=== PATIENT | female | born 1970 | race Asian ===

== ENCOUNTER 2017-09-07 10:54 | Day surgery (SDC) | payer OTHER, SELFPAY ==
[2017-09-07] MEDS ORDERED: ALPRAZOLAM0.5 MG PO (11:19)
[2017-09-07] MEDS ORDERED: FISH OIL 1,0001 EAC3 PO (11:19)
[2017-09-07] MEDS ORDERED: LISINOPRIL10 MG PO (11:20)
[2017-09-07] MEDS ORDERED: LEVOTHYROXINE112 MCG PO (11:20)
[2017-09-07] MEDS ORDERED: OLANZAPINE15 MG PO (11:21)
[2017-09-07] MEDS ORDERED: MULTIVITAMINS1 EAC8 PO (11:21)
[2017-09-07] MEDS ORDERED: VITAMIN D2000 UNI1 PO (11:22)
--- NOTE | 2017-09-07 13:29 | NUR ---
09/07/17 1329 Monica Pantoja report from jaya ayala.
--- NOTE | 2017-09-08 10:00 | OR ---
[facility] [address], [place] [address] Signed DATE OF OPERATION: 09/07/2017 SURGEON: Jana Victoria MD PREOPERATIVE DIAGNOSIS: Colon evaluation for episodic rectal bleeding. POSTOPERATIVE DIAGNOSIS: Sessile polyp at rectosigmoid (excised). PROCEDURE: Total colonoscopy to cecum with cold snare polypectomy x1. SURGEON: Jana Victoria MD ANESTHESIA: Intravenous sedation with fentanyl 100 mcg, Versed 9 mg. INDICATION: This 47-year-old white [place] Indian woman, has some underlying psychiatric issues, but is high functioning and working and independent. She is the patient of Constance Burks PA-C and known to me from the past having undergone colonoscopy in 2003, where she was found to have hyperplastic polyps of the right colon. She has had episodic rectal bleeding in recent times and on that basis she is recommended for colonoscopy. The risks of bleeding, infection, perforation, and so forth related to colonoscopy were reviewed with her. She understands and wished to proceed. FINDINGS: The prep was adequate. Complete colonoscopy was undertaken to the cecum. The only finding of note was a sessile polyp at approximately the rectosigmoid, which was excised with snare polypectomy technique (cold technique). There was no untoward bleeding. DESCRIPTION OF PROCEDURE: The patient was brought to the endoscopy suite and placed in lateral decubitus position given intravenous sedation to the point of slurred speech and nystagmus. Full cardiopulmonary monitoring was maintained. Digital rectal examination was normal. Electronically Signed By: JANA VICTORIA MD 09/08/17 1000 PATIENT NAME: REID WATERS OPERATIVE REPORT DATE OF : 70 PHYSICIAN: JANA VICTORIA MD REPORT #: [id number] REPORT IS CONFIDENTIAL AND NOT TO BE RELEASED WITHOUT AUTHORIZATION [facility] [address], [place] [address] Signed An Olympus video colonoscope was passed in the rectum and manipulated throughout the colon, ultimately intubating the cecum itself. Irrigation was undertaken as needed. The ileocecal valve and appendiceal orifice were normal. Scope was withdrawn from that point, examination throughout showed no sign of abnormality until approximately the rectosigmoid at about 12-15 cm where a small sessile polyp was noted. It was adenomatous based on narrow band imaging. Using a cold snare polypectomy technique, the polyp was excised fully. It was passed for permanent pathology. Retroflexed view in the rectum showed no other abnormalities. Scope was straightened, withdrawn, and removed, and the patient was taken to the recovery room in good condition. CONCLUDING DIAGNOSIS: Polyp of rectosigmoid, completely excised. PLAN: Repeat colonoscopy in 5 years, sooner if clinically indicated. If rectal bleeding should recur, she will let me or Constance Burks know. MD LEO Kwon/PAU /[id number] cc: Constance Burks PA-C Electronically Signed By: JANA VICTORIA MD 09/08/17 [facility] PATIENT NAME: REID WATERS OPERATIVE REPORT DATE OF : 70 PHYSICIAN: JANA VICTORIA MD REPORT #: [id number] REPORT IS CONFIDENTIAL AND NOT TO BE RELEASED WITHOUT AUTHORIZATION
== END 2017-09-07 13:55 | disposition home or self-care (01) ==
LOC: OPS 10:54
PROVIDERS: Surgery
PROC: 0DBN8ZX Excision of Sigmoid Colon, Via Natural or Artificial Opening Endoscopic, Diagnostic (ICD-10-PCS; principal; 2017-09-07 12:00)
DX: K63.5 Polyp of colon (principal); I10 Essential (primary) hypertension; D64.9 Anemia, unspecified; Z98.890 Other specified postprocedural states; Z90.49 Acquired absence of other specified parts of digestive tract
CPT/HCPCS: 99153; G0500; J2250; J3010; J7120

== ENCOUNTER 2019-10-31 16:13 | Inpatient (IN) | payer OTHER ==
--- NOTE | 2019-10-30 23:30 | NUR ---
INITIAL ASSESSMENT COMPLETE, VSS. PT A/OX4, RAITES PAIN 3/10 AND DESCRIBES TOLERABLE. PT REPORTS MINIMAL NAUSEA, DENIES NEED FOR MEDICATION AT THIS TIME. ED BRIDGE ORDERS FOR IV FLUIDS INFUSING AT 125MLS/HR, SITE WNL. PT NPO AT THIS TIME, ABDOMINAL TENDERNESS NOTED. BOWEL TONE ACTIVE. PT DENIES NEEDS AT THIS TIME, CALL LIGHT IN REACH.
[~2019-10-31] VITALS: Ht 152.4 cm; Wt 64.9 kg
[~2019-10-31 16:13] MED LIST: ALPRAZOLAM0.5 MG PO; FISH OIL 1,0001 EAC3 PO; LEVOTHYROXINE112 MCG PO; LISINOPRIL10 MG PO; MULTIVITAMINS1 EAC8 PO; OLANZAPINE15 MG PO; VITAMIN D2000 UNI1 PO
--- OUTSIDE RECORDS SUMMARY | 2019-10-31 16:16 | XMS ---
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 Angelina has no Care Guidelines for this patient. Yair VISIT COUNT (12 MO.) 1 RICKEY Salazar TOTAL 1 NOTE: Visits indicate total known visits. ED/UCC VISIT TRACKING (12 MO.) 10/31/2019 16:14 RICKEY Holliday OR TYPE: Emergency COMPLAINT: - VOMITING, NAUSEA INPATIENT VISIT TRACKING (12 MO.) No inpatient visits to display in this time frame [email or web address]
[2019-10-31] MEDS ORDERED: ONDANSETRON ODT4 MG PO (16:33)
--- NOTE | 2019-10-31 21:15 | NUR ---
TELEPHONE REPORT RECEIVED FROM ED RN BILL. QUESTIONS ANSWERED, AWAITING PT'S ARRIVAL.
--- NOTE | 2019-10-31 22:01 | NUR ---
PT ARRIVED TO FLOOR AT 2133 VIA STRETCHER. SHE WAS ABLE TO AMBULATE OVER TO BED INDEPENDENTLY. FLAGYL WAS INFUSING BUT IV IS NOW SL. SHE REPORTS PAIN AND NAUSEA ARE UNDER CONTROL AND RECENTLY ADMINISTERED MEDICATIONS. SHE IS ORIENTED TO THE ROOM AND DENIES FURTHER NEEDS AT THIS TIME.
--- NOTE | 2019-11-01 01:13 | NUR ---
PT RESTING IN BED WITH EYES CLOSED. RESPIRATIONS ARE EVEN AND UNLABORED, NO DISTRESS NOTED. IV FLUIDS INFUSING AT 125MLS/HR, SITE WNL. CALL LIGHT IN REACH.
--- NOTE | 2019-11-01 02:38 | NUR ---
ASSESSMENT COMPLETE, NO NEW CHANGES OR CONCERNS. PT A/O, VSS. SBP 98, MAP COLORER AWARE. SHAUNA MONITOR. PT DENIES DIZZINESS, AMBULATES SBA. PT DENIES PAIN OR NAUSEA AT THIS TIME. IV FLUIDS INFUSING AT 125MLS/HR, SITE WNL. DENIES NEEDS, CALL LIGHT IN REACH.
--- NOTE | 2019-11-01 04:35 | NUR ---
LR PRIMED AND HANGING WITH OR TUBING IN ROOM FOR SCHEDULED SURGERY.
--- NOTE | 2019-11-01 05:50 | NUR ---
DR COLE IN ROOM TO SEE PT.
--- NOTE | 2019-11-01 05:53 | NUR ---
DR COLE AWARE OF 96/ MANUAL BP, PT DENIES DIZZINESS. NO NEW ORDERS.
--- NOTE | 2019-11-01 06:09 | NUR ---
PT AMBULATING IN HALLWAY INDEPENDENTLY.
--- NOTE | 2019-11-01 07:11 | NUR ---
IV FLAGYL ORDERS CHANGED FROM Q8 TO Q6 BY DR COLE. 0600 DOSE GIVEN AT THIS TIME, NEW ORDER RETIMED BY TELEPHARMACY. SITE WNL.
--- NOTE | 2019-11-01 07:30 | NUR ---
PATIENT UP TO BATHROOM TO DO PRE-OP WIPE DOWN. CLEAN LINENS AND ORAL CARE DONE. HANDS AND FACE WASHED. NO OTHER NEEDS AT THIS TIME.
--- NOTE | 2019-11-01 07:30 | NUR ---
INFORMED PT WILL BE GOING TO OR IN A FEW MINUTES, COMPLETED PREOP, LR AT TKO, CONSENT SIGNED.
--- NOTE | 2019-11-01 09:17 | NUR ---
PATIENT IN OR. WILL FOLLOW LATER IF NEEDED. MUSIC ORCHESTRATOR STATES PATIENT IS INDEPENDENT AND LIKELY WON'T HAVE DISCHARGE BARRIERS.
--- NOTE | 2019-11-01 11:32 | NUR ---
11/01/19 1132 Ralph,Jessica 1120 PT ARRIVED TO PACU AND BREATHING TREATMENT STARTED. PT REACTIVE TO TACTILE STIMULI. VSS. 1128 PT WOKE TO VERBAL STIMULI AND O2 MASK REMOVED, RN ENCOURAGED DEEP BREATHING, PT REORIENTED TO PACU. PT DENIES PAIN AND NAUSEA. 1130 MD AT BEDSIDE AND ICE PLACED ON ABD.
--- NOTE | 2019-11-01 12:00 | NUR ---
PT RETURNED TO FLOOR FOLLOWING APPENDECTOMY, PT IS ALERT, ORIENTED, 3 SCOPE SITES WITH DRY GAUZE DRSGS. FAINT SHADOWING ON DRSG AT UMBILICUS. PT REPORTS ABD BEING SORE WITH MOVEMENT BUT DENIES NEED FOR PAIN MEDICATION, NO NAUSEA. DENIES NEED TO VOID, SIPPING ICE WATER, ENC USE OF INCENTIVE SPIROMETER. CALL LIGHT IN EASY REACH.
--- NOTE | 2019-11-01 13:28 | NUR ---
PT WAS TOLERATING FLUIDS WELL, FULL LIQUID TRAY ORDERED FOR LUNCH. MOTRIN AND NORCO GIVEN FOR DISCOMFORT. DOING VERY WELL WITH INCENTIVE SPIROMETER. NOW ON ROOM AIR.
--- NOTE | 2019-11-01 14:43 | NUR ---
ATE 100% OF FULL LIQUID TRAY, REPORTS PAIN 2/10, DENIES NUASEA, IN [employer] SPIRITS WATCHING TV, CALL LIGHT IN EASY REACH.
--- NOTE | 2019-11-01 14:52 | CONS ---
[facility] [address], [place] [address] Signed DATE OF CONSULTATION: 11/01/2019 CHIEF COMPLAINT: Right lower quadrant abdominal pain. HISTORY OF PRESENT ILLNESS: Heidy is a 49-year-old female who came with one-day history of some nausea and upset stomach. She had been to the urgent care clinic. She was given some Zofran and asked to go to the emergency room for IV fluids and hydration. In the emergency room, she had an elevated white count with some mild tenderness in the right lower quadrant. Consequently, she had a CT scan performed. She does have 1 cm appendicolith with a dilated appendix at 1.5 cm. There is some mild surrounding inflammation. Consequently, I have been asked to admit her as a general surgeon on-call. In the meantime, she has received IV fluids, pain control and her antibiotics. Overall, she is feeling a little better. PAST MEDICAL HISTORY: Bipolar disorder, hypertension, hypothyroidism, and vitamin D deficiency. PAST SURGICAL HISTORY: Laparoscopic cholecystectomy and colonoscopy. SOCIAL HISTORY: She does not smoke or drink. She has never been , has no children. She lives with her friend, Jackeline Christopher at [phone]. She does not drive. Abigail Bryson is her Woman's Health Nurse practitioner and Koko Feng is her primary care provider. FAMILY HISTORY: She was adopted at age 3 and does not know her biologic family. REVIEW OF SYSTEMS: She had 10 systems reviewed and there were no new findings. ALLERGIES: None. MEDICATIONS: Alprazolam, fish oil, levothyroxine, lisinopril, multivitamin, Zofran, vitamin D, and olanzapine. PHYSICAL EXAMINATION: VITAL SIGNS: Blood pressure 126/77, heart rate is 108, respiratory rate 16. Temperature is 98.7. She is 97% on room air. She is 5 feet tall and 64 kg. Electronically Signed By: JEMAL SILVESTRE MD 11/01/19 1452 PATIENT NAME: HEIDY WATERS CONSULTATION DATE OF : 70 REPORT #: [id number] PHYSICIAN: JEMAL SILVESTRE MD PCP: ABIGAIL RICHARDSON REPORT IS CONFIDENTIAL AND NOT TO BE RELEASED WITHOUT AUTHORIZATION [facility] [address], [place] [address] Signed GENERAL: Heidy is a 49-year-old female who does not appear systemically ill or toxic. In fact, she was walking down the hallway and had to go catch up to bring her back to the room. LUNGS: Clear to auscultation bilaterally. HEART: Regular rate and rhythm. She appears to have a very quiet 2/6 systolic ejection murmur. ABDOMEN: Her abdomen is generally soft and flat, but she is tender in the right lower quadrant. LABORATORY DATA: Her white blood cell count 14.5, hemoglobin 12, neutrophils 89. Electrolytes are unremarkable. BUN 21, creatinine 0.9. Urinalysis has a low bacteria with the urine culture pending. Liver function tests are negative. Albumin 4.7. Lipase was unremarkable. RADIOGRAPHIC STUDIES: A CT scan of the abdomen and pelvis shows the 1 cm appendicolith with a dilated appendix around 1.5 cm. There are some mild inflammatory changes around the appendix. It lies somewhat medial and inferior to the cecum. She also has some uterine fibroid tumors. ASSESSMENT/PLAN: Heidy is a 49-year-old female who presents with acute appendicitis and possibly a urinary tract infection. She has been admitted, given IV fluids, antibiotics, and pain control. We are going to be adding her on to our schedule this morning. I reviewed with Heidy, the location and function of the appendix. We reviewed laparoscopic surgery as well. She understands the nature of that surgery along with its risks including, but not limited to bleeding, infection, scarring, change in contour of the skin, damage to bowel, appendiceal stump leak, postoperative abscess, incisional hernias and other unforeseen comorbidities. She has expressed understanding and would like to proceed. Jemal Silvestre MD [facility]/MODL /[id number] cc: Patient's Chart Koko Feng Electronically Signed By: JEMAL SILVESTRE MD 11/01/19 1452 PATIENT NAME: HEIDY WATERS CONSULTATION DATE OF : 70 REPORT #: [id number] PHYSICIAN: JEMAL SILVESTRE MD PCP: ABIGAIL RICHARDSON REPORT IS CONFIDENTIAL AND NOT TO BE RELEASED WITHOUT AUTHORIZATION [address] [address] Signed Abigail Silvestre MD Copies: JEMAL SILVESTRE MD ~ Electronically Signed By: JEMAL SILVESTRE MD 11/01/19 1452 PATIENT NAME: HEIDY WATERS CONSULTATION DATE OF : 70 REPORT #: [id number] PHYSICIAN: JEMAL SILVESTRE MD PCP: ABIGAIL RICHARDSON REPORT IS CONFIDENTIAL AND NOT TO BE RELEASED WITHOUT AUTHORIZATION
--- NOTE | 2019-11-01 19:32 | NUR ---
SHIFT REPORT RECIEVED FROM BONNIE RAHMAN. PT STATES SHE HAS 5/10 IN RLQ. RN WILL GET PAIN MED. VISITORS IN ROOM. NO OTHER NEEDS, CALL LIGHT IN REACH.
--- NOTE | 2019-11-01 19:47 | NUR ---
PROVIDED PAIN MED FOR 5/10 RLQ PAIN. ICE WATER PROVIDED. NO OTHE NEEDS, CALL LIGHT IN REACH.
--- NOTE | 2019-11-01 20:04 | NUR ---
charge nurse note:. pt up to br with 1pa, voided 350cc dark yellow urine, back to bed, tolerated well. Tolerating full liquids well, no c/o n/v, IV infusing. Call light at bedside, scds in place
--- NOTE | 2019-11-01 22:34 | NUR ---
PT WALKED 3 LAPS IN HALLS. ASSESSMENT COMPLETED. INCISIONS WNL. IV CDI, WNL, FLUSHED WELL. IV FLUIDS INFUSING PER ORDER. ABD MILDLY DISTENDED. CMS INTACT. SCDs ON. ICE AND ICE WATER PROVIDED. PT ANXIOUS ABOUT HEALING TIME AND HOW TIME OFF FROM WORK WILL FINANCIALLY IMPACT HER. NO OTHER NEEDS, CALL LIGHT IN REACH.
--- NOTE | 2019-11-02 00:22 | NUR ---
PT AWAKE IN ROOM. SCHEDULED MED PROVIDED. SCDs ON. PAIN 210 IN RLQ. PT DENIES NEED FOR FURTHER PAIN INTERVENTION AT THIS TIME. NO OTHER NEEDS. CALL LIGHT IN REACH.
--- NOTE | 2019-11-02 02:29 | NUR ---
ASSESSMENT, VS AND I&O COMPLETED. PAIN IN RLQ 01/09, PT DENIES NEED FOR PAIN INTERVENTION. PT UP TO BR AND BACK TO BED, SBA. IV CDI, WNL. ABD MILDLY DISTENDED. INCISIONS WNL. NO OTHER NEEDS, CALL LIGHT IN REACH.
--- NOTE | 2019-11-02 03:24 | NUR ---
PT RESTING IN BED, EYES CLOSED. RR 12, EVEN, UNLABORED. CALL LIGHT IN REACH.
--- NOTE | 2019-11-02 05:06 | NUR ---
PT CALLS TO USE BR. UP TO BR AND BACK TO BED, SBA. VS AND I&O COMPLETED. ICE WATER PROVIDED. SCDs ON. PAIN 12/09. COLD PACK PROVIDED. NO OTHER NEEDS, CALL LIGHT IN REACH.
--- NOTE | 2019-11-02 05:32 | NUR ---
PT AWAKE IN ROOM. SCHEDULED MED PROVIDED. IV WNL, CDI. NO OTHER NEEDS, CALL LIGHT IN REACH.
--- NOTE | 2019-11-02 05:35 | OR ---
[facility] [address], [place] [address] Signed DATE OF OPERATION: 11/01/2019 SURGEON: Jemal Cole MD PREOPERATIVE DIAGNOSIS: Acute appendicitis. POSTOPERATIVE DIAGNOSIS: Acute suppurative appendicitis. PROCEDURE PERFORMED: Laparoscopic appendectomy. ESTIMATED BLOOD LOSS: Minimal. INDICATIONS: Heidy is a 49-year-old female, who the morning of admission was having generalized abdominal pain with some nausea. She gone to the urgent care clinic. She was asked to go over to the emergency room for some hydration. Her blood work came back with elevated white blood cell count and she seemed to be most tender in the right lower quadrant. Consequently, she had a CT scan of the abdomen and pelvis performed. She did have a 1 cm appendicolith with a dilated appendix around 1.5 cm. She had some mild periappendiceal inflammatory changes. She also has several uterine fibroid tumors. She may or may not have urinary tract infection as well. The urine culture of course is pending. In the meantime, she was admitted and started on Rocephin and Flagyl. I had met with Heidy this morning and reviewed with her in detail the above findings. We reviewed the location and function of the appendix. We discussed laparoscopic versus open appendectomy. She has been through a laparoscopic cholecystectomy, so she is familiar with this process. We had reviewed the risks including, but not limited to bleeding, infection, scarring, change in contour of the skin, damage to bowel, appendiceal stump leak, postoperative intraabdominal abscess, incisional hernias and other unforeseen comorbidities. We also reviewed the expected intraop and postop course. She had expressed understanding and wished to proceed. DESCRIPTION OF PROCEDURE: I met with Heidy in our preop area. After reviewing her questions, she was taken in the operating room and placed in the supine position under general endotracheal tube anesthesia. She was already on preoperative antibiotics along with subcutaneous Lovenox. SCDs were utilized. A Florence catheter was inserted with return of clear yellow Electronically Signed By: JEMAL COLE MD 11/02/19 0535 PATIENT NAME: HEIDY WATERS OPERATIVE REPORT DATE OF : 70 REPORT #: [id number] PHYSICIAN: JEMAL COLE MD PCP: CLIVE RICHARDSON REPORT IS CONFIDENTIAL AND NOT TO BE RELEASED WITHOUT AUTHORIZATION [facility] [address] [place] [id number] Signed urine. She was then prepped and draped in the usual sterile fashion. All trocars were placed in usual positions under direct visualization of camera without difficulty. We could easily see the uterine fibroid tumor emanating off to the right side of her pelvis. She had some reactive fluid along the right gutter and down in the pelvis. Her ovary and fallopian tube were up near the appendix. The appendix was somewhat posterior and we were able to work it up with the help of the cautery and some blunt dissection. The base of the appendix was cleared and we used our linear stapler to divide the appendix from the cecum. The staple line was gently cauterized for hemostasis. We then used our vascular load on the mesoappendix and again cautery was used for hemostasis. After this, the appendix was placed into an EndoCatch bag. The right lower quadrant was irrigated and suctioned out until clear. We then used our laparoscopic suturing device to pass 0 Vicryl suture x2 on either side of the fascia of the right subcostal trocar site. This was tied down to close this fascia primarily. After this, the gas was allowed to escape and the remaining two trocars removed. The appendix had been passed off the field. The fascia of the supraumbilical trocar site was closed with interrupted [id number] and simple 0 Vicryl sutures. Local anesthetic was injected into all trocar sites. Each trocar site was irrigated and suctioned out until clear. The skin and dermis of each trocar sites were closed with interrupted 3-0 subcuticular Monocryl sutures. Dry gauze and tape were then applied to all three incisions. Heidy Florence catheter was then removed without difficulty. She was awakened from her anesthesia, extubated in the OR, and taken to recovery room in stable condition. Jemal Cole MD [facility]/MODL /[id number] cc: EMANUEL Mercado MD Daniel Adelman Copies: CLIVE RICHARDSON Electronically Signed By: JEMAL COLE MD 11/02/19 0535 PATIENT NAME: HEIDY WATERS OPERATIVE REPORT DATE OF : 70 REPORT #: [id number] PHYSICIAN: JEMAL COLE MD PCP: CLIVE RICHARDSON REPORT IS CONFIDENTIAL AND NOT TO BE RELEASED WITHOUT AUTHORIZATION [address] [place], [place] [address] Signed JEMAL COLE MD ~ Electronically Signed By: JEMAL COLE MD 11/02/19 0535 PATIENT NAME: WATERSHEIDY OPERATIVE REPORT DATE OF : 70 REPORT #: [id number] PHYSICIAN: JEMAL COLE MD PCP: CLIVE RICHARDSON REPORT IS CONFIDENTIAL AND NOT TO BE RELEASED WITHOUT AUTHORIZATION
--- NOTE | 2019-11-02 06:12 | NUR ---
PT AWAKE IN ROOM. SCHEDULED MED PROVIDED. PAIN 3/10 IN RLQ. PT DENIES NEED FOR FURTHER PAIN INTERVENTION. NO OTHER NEEDS, CALL LIGHT IN REACH.
--- NOTE | 2019-11-02 06:45 | NUR ---
PT AWAKE IN ROOM. IV RATE CHANGED PER ORDER. NO OTHER NEEDS. CALL LIGHT IN REACH.
--- NOTE | 2019-11-02 07:13 | NUR ---
RECIEVED BEDSIDE REPORT FROM LACEY CONROY. PT IS SLEEPING SOUNDLY AT THIS TIME. PT HAD EPISODE OF ANXIETY EARLY IN SHIFT, RELAXED AFTER MEDICATION. SLEPT WELL MOST OF NIGHT. PT IS VERY ANXIOUS ABOUT GETTING DISCHARGED, THINKS SHE WILL HAVE TO RETURN TO WORK IMMEDEATELY.
[2019-11-02] MEDS ORDERED: NORCO 5-325 TA1 EACH PO (08:21)
[2019-11-02] MEDS ORDERED: BACTRIM DS TAB1 EACH PO (08:21)
[2019-11-02] MEDS ORDERED: IBUPROFEN600 MG PO (08:23)
--- NOTE | 2019-11-02 09:27 | NUR ---
PT IS ANXIOUS, RN EXPLAINED THE PLAN OF CARE. EXPLAINED THAT DR COLE WANTS HER TO EAT, PASS GAS, AND POSSIBLE BM. PT WAS UNABLE TO TOLERATE HER PANCAKE, TOLERATED PART OF AN EGG. PT AND RN WALKED ONE LAP. PT TOLERATED WELL. PT IS OK TO AMBULATE INDEPENDENTLY. SHE IS NOW WALKING WITH A FRIEND.
--- NOTE | 2019-11-02 09:45 | NUR ---
PATIENT UP AMBULATING IN [facility], IND.
--- NOTE | 2019-11-02 12:03 | NUR ---
PT HAS BEEN UP WALKING IN HALLS ALL MORNING. SHE STATES THE PAIN IN HER BELLY IS "NOT BAD" IT WAS EARLIER. PT ORDERED LUNCH AND SAYS SHE IS HUNGRY. SHE IS PASSING GAS. SHE ASKED FOR A PRN XANEX, GIVEN WITH GOOD RESULTS.
--- NOTE | 2019-11-02 14:49 | NUR ---
PATIENT SITTING ON SIDE OF BED, VISITOR IN ROOM. CALL LIGHT IN REACH. NO FURTHER NEEDS AT THIS TIME.
--- NOTE | 2019-11-02 16:00 | NUR ---
CALLED DR COLE TO GIVE UPDATE. PT HAS BEEN NAUSEAED WITH STOMACH PAIN AFTER EATING. GAVE 2 NORCO AND ONE XYPRXA WITH GOOD RESULTS. DR COLE WILL KEEP HER HERE ONE MORE NIGHT AND COME SEE HER IN THE MORNING. PT UPDATED ON THE PLAN OF CARE.
--- NOTE | 2019-11-02 17:26 | NUR ---
PATIENT UP TO SHOWER AND BACK TO BED, IND. PATIENT IND. IN SHOWER. NEW ATTEENDS AND GOWN PROVIDED. CALL LIGHT IN REACH. NO FURTHER NEEDS AT THIS TIME.
--- NOTE | 2019-11-02 20:03 | NUR ---
Charge nurse note:. pt ambulating hallways, smiling, no c/o pain, sob tolerating well,
--- NOTE | 2019-11-02 21:00 | NUR ---
EVENING ASSESSMENT COMPLETE. PM MEDS GIVEN WITHOUT ISSUE. PT AMBULATING IN ROOM AND HALLWAYS INDEPENDENTLY. PRN GIVEN WITH CRACKERS FOR ABD PAIN. LAP SITES X 3 WELL APPROXIMATED, NO DRAINAGE OR REDNESS NOTED. PT PASSING GAS. NO FURTHER NEEDS AT THIS TIME. CALL LIGHT IN REACH.
--- NOTE | 2019-11-02 23:58 | NUR ---
PT UP TO BR INDEPENDENTLY TO VOID 350 ML CLEAR YELLOW URINE. BACK TO BED, QUINN WELL. DENIES PAIN OR NAUSEA. IV ABX INFUSING.
--- NOTE | 2019-11-03 02:34 | NUR ---
PT RESTING IN BED WITH EYES CLOSED, NO APPARENT DISTRESS.
--- NOTE | 2019-11-03 03:29 | NUR ---
PATIENT UP WALKING AROUND FRESH WATER GIVEN.
--- NOTE | 2019-11-03 05:58 | NUR ---
IV ABX HUNG. PT MEDICATED WITH PRN FOR 4/10 ABD PAIN. CRACKERS AND FRESH WATER GIVEN. PT DENIES OTHER NEEDS AT THIS TIME. CALL LIGHT IN REACH.
--- NOTE | 2019-11-03 06:43 | NUR ---
PATIENT IS SLEEPING
--- NOTE | 2019-11-03 07:17 | NUR ---
RECIEVED BEDSIDE REPORT FROM LACEY MARTINEZ. PT IS AWAKE AND ALERT IN BED, IV ABX INFUSING. PT IS ANXIOUS ABOUT DISCHARGE, WHEN SHE HAS TO BE GONE, ECT. RN's EXPLAINED THAT WE ARE NOT KICKING HER OUT, SHE CAN LEAVE WHEN SHE IS HAS HAD BREAKFAST, SHOWERED, ECT AND AFTER THE DOCTOR COMES IN. PT IS AGREEABLE TO THAT PLAN.
--- NOTE | 2019-11-03 08:54 | NUR ---
PT HAS BEEN UP WALKING UP SEVERAL LAPS, MULTIPLE TIMES THIS MORNING. SHE IS WAITING ON DR COLE TO COME IN AND DISCHARGE HER.
--- NOTE | 2019-11-03 13:58 | NUR ---
DISCHARGE TEACHING COMPLETE. DISCUSSED WHEN TO FOLLOW UP, WHEN TO CALL THE DOCTOR, THINGS TO WATCH FOR, ACTIVITY, DIET. PT VERBALIZED UNDERSTANDING, ASKED QUESTIONS. ALL QUESTIONS ANSWERED. IV REMOVED. ALL PERSONAL BELONGINGS RETURNED TO PT.
--- NOTE | 2019-11-04 11:55 | DS ---
[facility] [address] [place], [place] [address] Signed ADMISSION DATE: 11/01/2019 DISCHARGE DATE: 11/03/2019 FINAL DIAGNOSES: 1. Acute suppurative appendicitis. 2. Possible urinary tract infection. PROCEDURE: Laparoscopic appendectomy. HISTORY OF PRESENT ILLNESS: Heidy is a 49-year-old female, who about a day prior to admission was having nausea, vomiting, and generalized abdominal pain. She had been to the Urgent Care Clinic and was asked to take some Zofran. She was sent over to the ER for some hydration. In the ER, it was found that her white count was elevated and so a CT scan was performed and she had a thickened inflamed appendix with an appendicolith present. There were also concerns about possible urinary tract infection. I had been asked to admit her as a general surgeon on-call. HOSPITAL COURSE: Heidy was admitted as above and started on Rocephin and Flagyl. We took her to the operating room later that day for her laparoscopic appendectomy. We had kept her on the IV antibiotics for not only the appendicitis but possibly the urinary tract infection. She did well on her full liquid diet, so the next day we put on a regular diet. She had some abdominal distention initially, but eventually passed some quite a bit of flatus. She had a small bowel movement this morning. Overall, she looks and feels much better. In talking with her, she feels comfortable going home at this point. On exam, all incisions are healing very nicely. She says she always has some mild protuberance to the abdomen at her baseline. She has some expected postop tenderness, but otherwise no peritonitis. Consequently, we are going to be discharging her to home. DISCHARGE PLANS AND MEDICATIONS: Heidy is going to be discharged to home with a prescription for Bactrim DS one p.o. b.i.d. for five days. That will give her seven full days antibiotics. She was also written for Henderson 5/325 one tablet p.o. q.6 hours p.r.n. for severe postoperative pain. We will dispense 20 tablets with no refills. She can also take Tylenol, ibuprofen or Aleve for mamf-py-cymgdxxh postoperative pain. She can purchase that wglp-kma-rmernwo. She can also resume all her chronic medicines as we did for her yesterday. She can continue to follow a regular diet. I have asked her not to do any heavy pushing, pulling, or lifting over 20 pounds. She is a bit anxious to go back to work. I explained to Heidy, many people take a week off after an infected appendix surgery. Electronically Signed By: JEMAL COLE MD 11/04/19 1155 PATIENT NAME: HEIDY WATERS DISCHARGE SUMMARY DATE OF : 70 REPORT #: [id number] PHYSICIAN: JEMAL COLE MD PCP: CLIVE RICHARDSON REPORT IS CONFIDENTIAL AND NOT TO BE RELEASED WITHOUT AUTHORIZATION [address] [address] Signed However, she feels better in a few days and she wants to return to work under more light duty status is perfectly fine. She can contact the office and we could fill out the paperwork for her. Otherwise, I am going to see her back in about a week at the office for followup. In the meantime, she can shower and bathe as usual and perform activities of daily living. I have asked her not do any heavy pushing, pulling, lifting over about 20 pounds. She has expressed understanding and agrees above plan. Jemal Cole MD ALB/MODL /[id number] cc: MD Constance Lynch PA Katie C Morioka, WHNP Copies: JEMAL COLE MD, KATIE C WHNP ~ Electronically Signed By: JEMAL COLE MD 11/04/19 1155 PATIENT NAME: HEIDY WATERS DISCHARGE SUMMARY DATE OF : 70 REPORT #: [id number] PHYSICIAN: JEMAL COLE MD PCP: CLIVE RICHARDSON REPORT IS CONFIDENTIAL AND NOT TO BE RELEASED WITHOUT AUTHORIZATION
== END 2019-11-03 13:35 | disposition home or self-care (01) | DRG 342 ==
LOC: ED 16:13 → MS 16:15
PROVIDERS: ADMIT Colon & Rectal Surgery
PROC: 0DTJ4ZZ Resection of Appendix, Percutaneous Endoscopic Approach (ICD-10-PCS; principal; 2019-11-01 09:30)
DX: K35.80 Unspecified acute appendicitis (principal); N39.0 Urinary tract infection, site not specified; F31.9 Bipolar disorder, unspecified; I10 Essential (primary) hypertension; E03.9 Hypothyroidism, unspecified; E55.9 Vitamin D deficiency, unspecified; Z79.899 Other long term (current) drug therapy
CPT/HCPCS: 00840; 74177; 80053; 81001; 83690; 84703; 85025; 87088; 96361; 99285-25; G0378; J0696; J1100; J1170; J1650; J1885; J2001; J2250; J2405; J2550; J2704; J3475; J7030; J7042; J7121

== ENCOUNTER 2021-04-20 05:40 | Day surgery (SDC) | payer OTHER ==
[~2021-04-20] VITALS: Ht 152.4 cm; Wt 65.9 kg
--- NOTE | ~2021-04-20 | OR ---
[facility] [address] [place], [place] [address] Draft DATE OF OPERATION: 04/20/2021 SURGEON: Jing Dolan DO PREOPERATIVE DIAGNOSES: 1. Endometrial hyperplasia complex without atypia. 2. Fibroid uterus. POSTOPERATIVE DIAGNOSES: 1. Endometrial hyperplasia complex without atypia. 2. Fibroid uterus. PROCEDURES PERFORMED: 1. Total laparoscopic hysterectomy with excite technique. 2. Bilateral salpingectomy. 3. Cystoscopy. PIECE MARKER SMALL ARMS: Anthony Gutierrez MD. ANESTHESIA: General. ESTIMATED BLOOD LOSS: 50 mL. SPECIMEN: Uterus with fibroid, cervix and bilateral fallopian tubes. DRAINS: Florence. FINDINGS: Normal external genitalia with normal clitoris, urethral meatus, bilateral Persia's, Bartholin's glands. Very narrow introitus. Normal cervix and vagina. On laparoscopy, normal right upper quadrant status post cholecystectomy with no significant abdominal or pelvic adhesions. There is multifibroid uterus with multiple exophytic subserosal fibroids and normal tubes and ovaries. Excellent hemostasis and apical support at the end the procedure. Normal bladder with bilateral ureteral jets. PATIENT NAME: REID WATERS OPERATIVE REPORT DATE OF : 70 REPORT #: [id number] PHYSICIAN: JING DOLAN DO PCP: HIEU BALBUENA PAC REPORT IS CONFIDENTIAL AND NOT TO BE RELEASED WITHOUT AUTHORIZATION [address] [place] [address] Draft COMPLICATIONS: None. INDICATIONS: Ms. Waters is a very pleasant 50-year-old G0 female who presented with uterine mass. An ultrasound demonstrated multifibroid uterus and endometrial biopsy showed complex endometrial hyperplasia without atypia arising in endometrial polyps which were removed at prior hysteroscopy, d and C. We reviewed options for treatment of endometrial hyperplasia and while she has no significant bleeding from the fibroids, treatment of that as well. She declined progestin therapy and wished for definitive surgical therapy with a laparoscopic hysterectomy. Risks, benefits, and alternatives were discussed in detail. The patient understands and wished to proceed with the procedure. TECHNIQUE: The patient was taken to the operating room. A time-out was performed to confirm correct patient and correct procedure. General anesthesia was adequately established. The patient was prepped and draped in the dorsal lithotomy position with feet in Yellofin stirrups. ICPs were on and running. The patient received Ancef 2 g preoperatively, but no heparin was indicated based on her Caprini score. A Florence catheter was inserted and the cervix was grasped with an Allis clamp. The introitus was noted to be quite narrow. The cervix was gently dilated using Hegar dilators and a VCare uterine manipulator was placed, however, it was very difficult to pass the green and blue cup due to the narrow introitus, but these were successfully passed and excellent placement noted. Surgeon's gloves were changed. Attention was turned to the base of the umbilicus. The base of the umbilicus was infiltrated with 0.25% Marcaine with epinephrine. A 5 mm skin incision was made with an 11 blade and a 5 mm trocar was placed under direct visualization without complication. Low opening pressures were performed and no injury noted. Survey of the abdomen and pelvis was performed with the findings, normal right upper quadrant status post cholecystectomy and multifibroid uterus with normal bilateral tubes and ovaries. A 5 mm assist port was placed in the left lower quadrant under direct visualization. An 8 mm expanding port was placed in the right lower quadrant under direct visualization without complication. The left fallopian tube was grasped with graspers, elevated, and dissected along the mesosalpinx using the ligature device. The tube was passed through a trocar and sent to pathology for further evaluation. The process was repeated on the right side without difficulty. The right utero-ovarian ligament was fulgurated and divided with excellent hemostasis. The left utero-ovarian ligament was fulgurated and divided. The left round ligament was fulgurated and divided with excellent hemostasis. The leaves of the broad ligament were then divided with the anterior leaf dissected down across the lower uterine segment at the level of the vaginal cuff. The bladder was then pushed well below the vaginal cuff without difficulty. The posterior leaf of the broad ligament was dissected down to the uterosacral and across the posterior edge of the vaginal cuff. The uterine vessels were PATIENT NAME: REID WATERS OPERATIVE REPORT DATE OF : 70 REPORT #: [id number] PHYSICIAN: JING DOLAN DO PCP: HIEU BALBUENA PAC REPORT IS CONFIDENTIAL AND NOT TO BE RELEASED WITHOUT AUTHORIZATION [facility] [address] [place], [place] [address] Draft identified, fulgurated and divided with excellent hemostasis. The process was repeated on the right with fulguration and division of the round ligament and division of the leaves of the broad ligament. The uterine vessels on the right were identified, fulgurated and divided with excellent hemostasis. The colpotomy was then performed using Sonicision device in a circumferential manner following the green edge of the vaginal cuff. Given large multifibroid uterus and the very narrow introitus, decision was made to proceed with excite technique for removal of the uterus and cervix. The uterine manipulator was removed and the 5 mm umbilical port was removed. The 5 mm infraumbilical incision was then extended to approximately 12 mm using surgical scalpel. The fascia was grasped with hemostats, elevated and divided using surgical scalpel. The edges of the fascia were tagged with #0 Vicryl stay sutures and the peritoneum was entered bluntly. A 15 EndoCatch bag was then placed through this incision and the uterus and cervix were placed inside the EndoCatch bag and brought through the umbilicus. An Anurag O was then placed inside the bag to assist with removal. The edge of the uterus was grasped with Allis clamps and removed utilizing the excite technique with contained extracorporeal morcellation. Careful attention was made to not puncture the bag or have any spillage of material. This was achieved without complication and the EndoCatch bag and Anurag O were removed. All dirty instruments were also removed from the surgical field. Attention was then turned to the vaginal cuff. The posterior edge of the cuff was grasped with a clamp and hysterotomy was repaired using V-Loc suture with an Endostitch device with careful attention to incorporate the uterosacral ligaments bilaterally and the vaginal epithelium with each bite. Excellent apical support and vaginal closure were noted at the end of the procedure. The pelvis was irrigated and found to be hemostatic. Tisseel was applied to the vaginal cuff and pedicles and excellent hemostasis was appreciated as pneumoperitoneum was reduced. The umbilical site was repaired with fascia being run with 0 Vicryl in a running nonlocked manner. The other trocars were removed and trocar sites were repaired using 4-0 Monocryl in subcuticular stitch with excellent hemostasis and cosmesis. Attention was then turned to cystoscopy. The Florence catheter was removed and a 70 degree cystoscope was placed into the urethra and advanced under direct visualization into the bladder. Normal urethra and bladder were appreciated. Bilateral ureteral jets were appreciated. The bladder was drained. Florence catheter was reinserted. The patient was taken to PACU in good and stable condition. Sponge, needle, and instrument count were correct x2 at the end of the procedure. Dr. Gutierrez was present and participated in all portions of procedure. Jing Dolan DO PATIENT NAME: REID WATERS OPERATIVE REPORT DATE OF : 70 REPORT #: [id number] PHYSICIAN: JING DOLAN DO PCP: HIEU BALBUENA PAC REPORT IS CONFIDENTIAL AND NOT TO BE RELEASED WITHOUT AUTHORIZATION [facility] [address] [facility] [place] [address] Draft JPiedadW/MODL /[id number] Copies: ~ PATIENT NAME: REID WATERS OPERATIVE REPORT DATE OF : 70 REPORT #: [id number] PHYSICIAN: JING DOLAN DO PCP: HIEU BALBUENA PAC REPORT IS CONFIDENTIAL AND NOT TO BE RELEASED WITHOUT AUTHORIZATION
[~2021-04-20 05:40] MED LIST changes: +BACTRIM DS TAB1 EACH PO; +IBUPROFEN600 MG PO; +K-TAB ER20 MEQ; +MAGNESIUM200 MG PO; +NORCO 5-325 TA1 EACH PO; +ONDANSETRON ODT4 MG PO; +SUPER B-50 COM1 EACH PO
--- NOTE | 2021-04-20 09:39 | NUR ---
04/20/21 0917 Raissa Anand 0934- PT ARRIVES TO PACU NONAROUSABLE TO NOXIOUS STIMULI WITH AN OPA IN PLACE. PT NEEDING A JAW LIFT WELL TO MAINTAIN PATENT AIRWAY. PT IS MAKING NOISE WITH THE OPA IN PLACE. DONI FRIAS CRNA REMOVES THE OPA. JAW LIFT MAINTAINED. RESP EVEN AND UNLABORED. OXYGEN SAT HIGH 90'S TO 100% ON 6L VIA MASK. 9106- DR. HINOJOSA AT THE BEDSIDE. PT LIFTED HER HEAD TO STIMULI, DOES NOT OPEN EYES OR VERBALLY RESPOND. JAW LIFT STOPPED. PT IS ABLE TO MAINTAIN HER OWN AIRWAY NOW.
--- NOTE | 2021-04-20 10:56 | NUR ---
1005: PT ARRIVES TO UNIT FROM PACU VIA STRETCHER. AWAKE AND ORIENTED. ANSWERS QUESTIONS APPROPRIATELY. VSS, RESP EVEN AND UNLABORED. DENIES PAIN AND NAUSEA. QUINN PO INTAKE WELL. REQUESTS REG LUNCH TRAY. ORDER PLACED. LAP SITES X3 WITH MINIMAL DRAINAGE. BARNES CATH DRAINING CLEAR YELLOW URINE AT THE BEDSIDE. NO NEEDS VOICED AT THIS TIME. CALL LIGHT WITHIN REACH 1030: REG LUNCH TRAY ARRIVES AT THE BEDSIDE. SPRITE PROVIDED AT REQUEST. NO FURTHER NEEDS VOICED
--- NOTE | 2021-04-20 11:21 | NUR ---
1105: PT COMFORTABLE SITTING UP IN BED AND WATCHING TV. 100% OF REG LUNCH CONSUMED. DENIES PAIN AND NAUSEA AT THIS TIME. VSS, RESP EVEN AND UNLABORED. DANGLES AT THE BEDSIDE. QUINN WELL. NO BLEEDING NOTED AT THIS TIME. BARNES CATH REMOVED AND DRAINED FOR 275ML CLEAR YELLOW URINE. ICE WATER REPLENISHED. CALL LIGHT WITHIN REACH
--- NOTE | 2021-04-20 12:27 | NUR ---
1220: PT WATCHES TV COMFORTABLY AT THIS TIME. VSS, RESP EVEN AND UNLABORED. NO CHANGE TO DRESSINGS. DENIES PAIN AND NAUSEA. NO NEEDS VOICED. CALL LIGHT WITHIN REACH
--- NOTE | 2021-04-20 13:13 | NUR ---
1305: PT EATS SOUP AND WATCHES TV IN STRETCHER. DENIES PAIN AND NAUSEA AT THIS TIME. DENIES URGE TO VOID. TO CALL RN WHEN FINISHED WITH SOUP TO ATTEMPT VOID. VSS, RESP EVEN AND UNLABORED. NO CHANGE TO LAP SITES X3. SCDS IN PLACE. CALL LIGHT WITHIN REACH
--- NOTE | 2021-04-20 13:47 | NUR ---
1320: PATIENT ASSISTED OOB AND TO BATHROOM. VOID 250 ML OF YELLOW URINE WITHOUT DIFFICULTY. GAIT STEADY TO AND FROM BATHROOM. PATIENT NOW GETTING DRESSED INDEPENDENTLY.
--- NOTE | 2021-04-20 14:12 | NUR ---
1345: PT DRESSED AND READY FOR D/C. SL D/C'D WITH CATH TIP INTACT AND PRESSURE APPLIED TO SITE. WNL. D/C INSTRUCTIONS PROVIDED ORDERED. PT VOICES UNDERSTANDING AND DENIES QUESTIONS AND CONCERNS AT THIS TIME. 1400: WHEELED OFF OF UNIT IN W/C. TRANSFERS INTO VEHICLE INDEPENDENTLY. RESP EVEN AND UNLABORED. NO PHYSICAL S/S OF DISTRESS AT THIS TIME
--- NOTE | 2021-04-22 14:18 | PATH ---
[facility] [address] [place], [place] [address] Signed THIS IS AN ADDENDUM REPORT SPECIMEN(S): A UTERUS, BILAT FALLOPIAN TUBES AND CERVIX SPECIMEN SOURCE: A. UTERUS, BILAT FALLOPIAN TUBES AND CERVIX CLINICAL HISTORY: TLH, BS, cysto. 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 FINAL PATHOLOGIC DIAGNOSIS: Uterus, cervix, bilateral fallopian tubes, hysterectomy with bilateral salpingectomy: - Ectocervical epithelium within normal limits. - Endocervical epithelium with squamous metaplasia. - Chronic cervicitis. - Nabothian cysts. - Uterus with secretory phase endometrium and leiomyomata. - Fallopian tubes within normal limits. - Paratubal cysts. COMMENT: Additional sections of the endometrium are to be submitted and an addendum report will follow. NHNAK:emh:C2NR MICROSCOPIC EXAMINATION: Histologic sections of all submitted blocks are examined by light microscopy. These findings, together with the gross examination, support the pathologic diagnosis. GROSS DESCRIPTION: The specimen, labeled "HC, cervix, bilateral fallopian tubes and uterus," is received in formalin and consists of a morcellated uterus (167 gram, 12.0 x 10.5 x 4.3 cm in aggregate), fragmented portion of cervix (3.5 x 3.5 x 2.3) with identifiable pink-galindo, smooth cervical mucosa, and two undesignated fimbriated fallopian tube segments (5.2 cm in length x 1.9 cm in diameter and 8.0 cm in length and ranging in diameter from 0.5-1.2 cm). One fallopian tube segment is arbitrarily inked blue. Both fallopian tube segments are red-brown with attached paratubal cysts that range in size from 0.3-0.8 PATIENT NAME: REID WATERS PATHOLOGY DATE OF : 70 REPORT #: [id number] PHYSICIAN: ESTEBAN PATHOLOGY PCP: HIEU BALBUENA PAC REPORT IS CONFIDENTIAL AND NOT TO BE RELEASED WITHOUT AUTHORIZATION [facility] [address] [place], [place] [address] Signed cm in greatest dimension, and are sectioned to reveal a grossly unremarkable cut surface. The fimbriae are entirely submitted. Sectioning the specimen shows identifiable pink-galindo uterine serosa, trabeculated myometrium, fragments of endometrium (up to 0.2 cm in thickness), and white-galindo, whorled nodules (measuring up to 4.0 cm in greatest dimension). Silo Operator sections are submitted as follows: (A1-A3) Fallopian tubes (A4) Cervix (A5) Endomyometrium (A6-A7) Nodules AC (under the direct supervision of a pathologist) The Gross Description was prepared using a voice recognition system. The report was reviewed for accuracy; however, sound-alike word errors, addition and/or deletions may occur. If there is any question about this report, please contact Client Services. PERFORMING LABORATORY: The technical component was performed by [facility] [address] (Java Grails Developer: Candie Meek MD; CLIA# [id number]). [facility], [address] [address] (CLIA# [id number]). REASON FOR ADDENDUM: To report additional information. ADDENDUM COMMENT: The rest of the endometrium has been completely submitted. These sections show a focus of simple hyperplasia without atypia. Well over 95% of the rest of the endometrium demonstrates features of secretory phase endometrium. TWK:cml The technical component was performed by [facility], [address] [place] [id number] (Java Grails Developer: Candie Meek MD; CLIA# [id number]). Professional interpretation was performed by [facility], [facility], [address] [place] [id number] (CLIA# [id number]). Diagnostician: Howard Hernandez MD Pathologist Electronically Signed 04/22/2021 PATIENT NAME: REID WATERS PATHOLOGY DATE OF : 70 REPORT #: [id number] PHYSICIAN: ESTEBAN PATHOLOGY PCP: HIEU BALBUENA PAC REPORT IS CONFIDENTIAL AND NOT TO BE RELEASED WITHOUT AUTHORIZATION [facility] [address] [facility] [place], [place] [address] Signed Copies: ~ PATIENT NAME: REID WATERS PATHOLOGY DATE OF : 70 REPORT #: [id number] PHYSICIAN: ESTEBAN ANGULO PCP: HIEU BALBUENA PAC REPORT IS CONFIDENTIAL AND NOT TO BE RELEASED WITHOUT AUTHORIZATION
== END 2021-04-20 13:50 | disposition home or self-care (01) ==
LOC: DS 05:40
PROVIDERS: ATTEND Obstetrics & Gynecology
PROC: 0UT94ZZ Resection of Uterus, Percutaneous Endoscopic Approach (ICD-10-PCS; principal; 2021-04-20 07:00)
PROC: 0UT74ZZ Resection of Bilateral Fallopian Tubes, Percutaneous Endoscopic Approach (ICD-10-PCS; 2021-04-20 07:00)
DX: D25.9 Leiomyoma of uterus, unspecified (principal); N87.9 Dysplasia of cervix uteri, unspecified; N72 Inflammatory disease of cervix uteri; N88.8 Other specified noninflammatory disorders of cervix uteri; N83.8 Other noninflammatory disorders of ovary, fallopian tube and broad ligament; I10 Essential (primary) hypertension; E03.9 Hypothyroidism, unspecified
CPT/HCPCS: 00840; J0690; J1885; J2001; J3010; J7121

== ENCOUNTER 2023-03-16 12:42 | Day surgery (SDC) | payer OTHER ==
[~2023-03-16] VITALS: Ht 152.4 cm; Wt 67.0 kg
[2023-03-16 13:01] VITALS: BP 100/63
--- NOTE | 2023-03-16 16:40 | NUR ---
03/16/23 1640 Raissa Anand 1633- PT ARRIVES TO PACU ALERT AND ORIENTED. PT REPORTS NO PAIN OR NAUSEA. RESP EVEN AND UNLABORED. OXYGEN SAT HIGH 90'S TO 100% ON RA. PT ASKING WHEN SHE CAN GET DRESSED TO GO HOME. EXPLAINED TO PT ABOUT GETTING DC INSTRUCTIONS WRITTEN AND THEN SHE COULD GO HOME. PT HAPPY WITH THIS. 1638- PT SITTING UP IN BED. PT REPORTS NO DIZZINESS OR NAUSEA WITH THIS. PT PROVIDED ICE WATER. TOLERATING WELL.
[2023-03-16 16:51] VITALS: BP 104/72
--- NOTE | 2023-03-19 14:55 | OR ---
[facility] [address] [place], [place] [address] Signed DATE OF OPERATION: 03/16/2023 SURGEON: Jana Victoria MD PREOPERATIVE DIAGNOSES: 1. History of hyperplastic polyps in 2017. 2. Family history unknown for colon cancer. POSTOPERATIVE DIAGNOSIS: Two small polyps, right colon (excised). PROCEDURE: Total colonoscopy to cecum with cold morcellation polypectomy x2. ANESTHESIA: Intravenous sedation, fentanyl 100 mcg and Versed 5 mg. INDICATIONS: This is a highly functioning 52-year-old woman, patient of Hieu Balbuena. She underwent colonoscopy by me in 2017, where she was found to have hyperplastic polyp. She has known family history. She is adopted from [place] in infancy. She is symptom-free right now, having no bleeding, diarrhea, or constipation. She is admitted to undergo screening colonoscopy, understands the risk of bleeding, infection, and perforation. FINDINGS: The prep was good. Complete colonoscopy was undertaken to the cecum without question. She had two very small polyps in the right colon, both excised with cold morcellation technique. The remaining colon was normal. DESCRIPTION OF PROCEDURE: The patient was brought to the endoscopy suite and placed in lateral decubitus position given intravenous sedation to the point of slurred speech and nystagmus. Digital rectal examination was normal. An Olympus video colonoscope was passed into the rectum and manipulated throughout the colon, ultimately intubating the cecum. Irrigation was undertaken as needed. Grasping of mucosa in the cecum elevated the area behind the ileocecal valve, showing no evidence of abnormality. The scope was then withdrawn and in the mid ascending colon there were two small polyps, both excised with cold morcellation technique. Further withdrawal Electronically Signed By: JANA VICTORIA MD 03/19/23 1455 PATIENT NAME: REID WATERS OPERATIVE REPORT DATE OF : 70 REPORT #: [id number] PHYSICIAN: JANA VICTORIA MD PCP: HIEU BALBUENA PAC REPORT IS CONFIDENTIAL AND NOT TO BE RELEASED WITHOUT AUTHORIZATION [facility] [address] [place], [place] [address] Signed showed the remaining colon and rectum to be normal. Retroflexed view was normal as well. The scope was removed, and the patient taken to the recovery room in good condition. CONCLUDING DIAGNOSIS: Two small polyps, excised. PLAN: Recommend repeat colonoscopy in 5 years if the polyps were adenomatous, 10 if not. She will return to the ongoing care of Hieu Balbuena as well. MD LEO Kwon/MODL /[id number] cc: Hieu Balbuena Copies: ~ Electronically Signed By: JANA VICTORIA MD 03/19/23 1455 PATIENT NAME: REID WATERS OPERATIVE REPORT DATE OF : 70 REPORT #: [id number] PHYSICIAN: JANA VICTORIA MD PCP: HIEU BALBUENA PAC REPORT IS CONFIDENTIAL AND NOT TO BE RELEASED WITHOUT AUTHORIZATION
--- NOTE | 2023-03-20 11:35 | PATH ---
[facility] [address] [place], [place] [address] Signed SPECIMEN(S): A ASCENDING COLON POLYP SPECIMEN SOURCE: A. ASCENDING COLON POLYP CLINICAL HISTORY: History of polyps. Postop: Polyps x 2. FINAL PATHOLOGIC DIAGNOSIS: Ascending colon polyp: - Polypoid colonic mucosa with slight adenomatous change (one fragment). JVR:purnima:C2NR MICROSCOPIC EXAMINATION: Histologic sections of all submitted blocks are examined by light microscopy. These findings, together with the gross examination, support the pathologic diagnosis. GROSS DESCRIPTION: The specimen, labeled and designated "Agustina ascending colon polyp," is received in formalin and consists of three galindo soft tissue fragments, ranging from 0.1-0.2 cm. Entirely submitted in (A1). JS (under the direct supervision of a pathologist) The Gross Description was prepared using a voice recognition system. The report was reviewed for accuracy; however, sound-alike word errors, addition and/or deletions may occur. If there is any question about this report, please contact Client Services. PERFORMING LABORATORY: The technical component was performed by [facility], [address] [place] [address] (CLIA# [id number]). Professional interpretation was performed by [facility] - [facility], [address] [place] [id number] (CLIA#: [id number]). Diagnostician: Jeb Cota MD Pathologist Electronically Signed 03/20/2023 Copies: PATIENT NAME: REID WATERS PATHOLOGY DATE OF : 70 REPORT #: [id number] PHYSICIAN: ESTEBAN PATHOLOGY PCP: HIEU BALBUENA PAC REPORT IS CONFIDENTIAL AND NOT TO BE RELEASED WITHOUT AUTHORIZATION [address] [address] Signed ~ PATIENT NAME: REID WATERS PATHOLOGY DATE OF : 70 REPORT #: [id number] PHYSICIAN: ESTEBAN PATHOLOGY PCP: HIEU BALBUENA PAC REPORT IS CONFIDENTIAL AND NOT TO BE RELEASED WITHOUT AUTHORIZATION
== END 2023-03-16 17:00 | disposition home or self-care (01) ==
LOC: OPS 12:42 → DS 14:00 → OPS 17:00
PROVIDERS: ATTEND Surgery
PROC: 0DBK8ZZ Excision of Ascending Colon, Via Natural or Artificial Opening Endoscopic (ICD-10-PCS; principal; 2023-03-16 14:00)
DX: Z12.11 Encounter for screening for malignant neoplasm of colon (principal); D12.2 Benign neoplasm of ascending colon; Z86.010 Personal history of colon polyps; R62.50 Unspecified lack of expected normal physiological development in childhood; I10 Essential (primary) hypertension; E03.9 Hypothyroidism, unspecified; Z90.711 Acquired absence of uterus with remaining cervical stump
CPT/HCPCS: 99153; G0500; J2250; J3010; J7121

== ENCOUNTER 2025-03-20 07:03 | Day surgery (SDC) | payer OTHER ==
[2025-03-17 13:24] VITALS: BP 124/75
[2025-03-18 10:56] VITALS: BP 124/75
[~2025-03-20] VITALS: Ht 152.4 cm; Wt 66.8 kg
[~2025-03-20 07:03] MED LIST changes: +CEFAZOLIN SODIUM 2 GM/20 ML SYR IV SCH; +GARLIC200 MG PO; +HEParin SOD (PORCINE) 5,000 UNIT/ML SDV SUB-Q SCH; +IBLOOD GLUCOSE TEST STRIP 1 EA TEST VI PRN; +LACTATED RINGER'S 1,000 ML IV SCH; +LIDOCAINE HCL 1% 5 ML SDV INJ ONE
[2025-03-20 07:20] VITALS: BP 114/69
[2025-03-20] MEDS ORDERED: TYLENOL EXTRA500 MG PO (07:26)
[2025-03-20] MEDS ORDERED: SEVOFLURANE 250 ML BTL INH ONE (08:03)
[2025-03-20] MEDS ORDERED: fentaNYL citrate 100 MCG/2 ML VIAL ONE (08:15)
[2025-03-20] MEDS ORDERED: ondansetron HCL 4 MG/2 ML VIAL ONE (08:15)
[2025-03-20] MEDS ORDERED: DEXAMETHASONE SOD PHOS 4 MG/ML VIAL ONE (08:15)
[2025-03-20] MEDS ORDERED: LIDOCAINE HCL 2% 5 ML SDV ONE (08:15)
[2025-03-20] MEDS ORDERED: MIDAZOLAM HCL 2 MG/2 ML VIAL ONE (08:15)
[2025-03-20] MEDS ORDERED: propofoL 200 MG/20 ML VIAL ONE (08:15)
[2025-03-20] MEDS ORDERED: ondansetron HCL 4 MG/2 ML VIAL IV PRN (09:00)
[2025-03-20] MEDS ORDERED: ePHEDrine sulfate 50 MG/ML AMP ONE (09:11)
--- NOTE | 2025-03-20 10:42 | NUR ---
03/20/25 1042 Doris Hsu 1031-PT ARRIVES TO PACU, VIA STRETCHER, RESTING SEMI FOWLERS, PT UNRESPONSIVE TO NOXIOUS STIMULI, OPA IN PLACE, VSS ON 6L VIA MASK, RR EVEN AND UNLABORED.
[2025-03-20] MEDS ORDERED: IBUPROFEN600 MG PO (10:54)
[2025-03-20] MEDS ORDERED: OXYCODONE HCL5 MG PO (10:54)
[2025-03-20] MEDS ORDERED: ACETAMINOPHEN500 MG PO (10:55)
[2025-03-20] MEDS ORDERED: IBUPROFEN 600 MG TAB PO PRN (11:00)
[2025-03-20] MEDS ORDERED: ACETAMINOPHEN 500 MG TAB PO PRN (11:00)
[2025-03-20] MEDS ORDERED: NALOXONE HCL 0.4 MG SYR IV PRN ×2 (11:00→13:00)
[2025-03-20] MEDS ORDERED: OXYCODONE HCL 5 MG TAB PO PRN (11:00)
[2025-03-20 11:07] VITALS: BP 136/93
--- NOTE | 2025-03-20 11:13 | NUR ---
1105- PT ARRIVES TO DAY SURGERY ROOM 6 FROM PACU. PT IS AWAKE AND ASKING QUESTIONS THAT ARE ANSWERED. LR INFUSING. SURGICAL SITE ASSESSED TOGETER AND IT IS CDI. PT SIPPING ON WATER. DISCHARGE CRITERIA DISCUSSED AND PT IS AGREEABLE. FRIEND AT BEDSIDE. VITAL SIGNS OBTAINED. BED IS LOCKED IN THE LOWEST POSTION AND CALL LIGHT IN REACH.
[2025-03-20 12:25] VITALS: BP 135/78
--- NOTE | 2025-03-20 12:27 | NUR ---
1220- PT IS SITTING UP AND TALKING . PT HAS HAS 3 GLASSES OF WATER AND HAD GRAHM CRACKERS AND APPLE SAUCE. PT REPORTS SHE DOES NOT FEEL THE URGE TO VOID AT THE MOMENT. VITAL SIGNS OBTAINED. QUESTIONS AND CONCERNS ANSWERED. PT DOES EXPRESS SOME ANXIETY ABUT RETURNING TO WORK ON MONDAY. CALL LIGHT IN REACH, BED LOCKED IN THE LOWEST POSTION.
[2025-03-20] MEDS ORDERED: HYDROmorphone HCL 1 MG/ML SYR IV PRN (13:00)
[2025-03-20] MEDS ORDERED: MEPERIDINE HCL 25 MG/1 ML VIAL IV PRN (13:00)
[2025-03-20] MEDS ORDERED: fentaNYL citrate 50 MCG/ML SDV IV PRN (13:00)
[2025-03-20] MEDS ORDERED: KETOROLAC TROMETHAMINE 30 MG/ML VIAL IV ONE (13:00)
[2025-03-20 13:18] VITALS: BP 125/76
--- NOTE | 2025-03-20 14:08 | NUR ---
1250- PT SITTING AT THE SIDE OF THE BED. PT REPORTS A LITTLE BIT OF DIZZINESS. NURSE AT HER SIDE FOR ASSISTANCE IF NEEDED. PT WALKS WITH AN EVEN AND STEADY GAIT TO THE RESTROOM. PT IS ABLE TO VOID AND RETURN TO ROOM SAFETLY. PT REQUESTING TO GET DRESSED. 1331- PT DRESSED. IV REMOVED. DISCHARGE INFORMATION GONE OVER AND [facility] EDUCATION ON DRAIN CARE GIVEN. EDUCATION GIVEN AND PAPERWORK WITH PRESCRIPTION. ALL QUESTIONS AND CONCERNS ANSWERED. PT IS ABLE TO AMBULATE TO WHEELCHAIR WITH NO ISSUES. PT DC FROM DAY SURGERY AT THIS TIME AND IS ABLE TO GET INTO FAMILY VEHCILE WITH NO ISSUES.
--- NOTE | 2025-03-21 09:39 | OR ---
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 ALAYNA business performance specialist localization left upper outer quadrantectomy. 2. pedicled tissue advancement flap reconstruction of the breast defect followintg partial mastectomy to preserve contour and avoid secondary wound healing. skin excision. ANESTHESIA: General endotracheal, Joe Seamons, RAILRO[employer] CAR REPA[employer] SUPERVISOR and local 3 mL of 0.25% Marcaine with epinephrine. DRAINS: 7 mm Aniket. INDICATION: This 54-year-old woman is a patient of Hieu Balbuena and underwent a screening mammography where she was found to have abnormalities in the upper outer aspect of the left breast. Ultrasound evaluation confirmed abnormal findings as well. She underwent diagnostic mammogram February 06, 2025 showing two suspicious left breast lesions in the same quadrant in the upper outer aspect. This culminated in ultrasound-guided biopsy of both masses on February 20, 2025. Pathology showed initial lesion 4 cm from the nipple, considered the ductal carcinoma in situ, low grade, and an additional lesion separate and distinct 7 cm from the nipple, also ductal carcinoma in situ, also low grade. These lesions are both in the same quadrant and options of management have been reviewed. She has settled upon partial mastectomy with radiation therapy postoperatively. The risk of bleeding, infection, cosmetic deformity, need for additional treatment, particularly of invasive cancer should be identified were all reviewed with her. She understands and wished to proceed. Electronically Signed By: JANA VICTORIA MD 03/21/25 0939 PATIENT NAME: REID WATERS OPERATIVE REPORT DATE OF : 70 REPORT #: [id number] PHYSICIAN: JANA VICTORIA MD PCP: HIEU BALBUENA PAC REPORT IS CONFIDENTIAL AND NOT TO BE RELEASED WITHOUT AUTHORIZATION [facility] [address], [place] [address] Signed FINDINGS: Both ALAYNA business performance specialist devices were in the same quadrant as expected and several centimeters apart. Initial plan for excision of them independently was modified when the tissue between the two areas of signal quite obviously included abnormality as well. On that basis, wide resection was undertaken with a clinically negative margin. This essentially resulted in quadrantectomy. For cosmetic benefit, complex tissue transfer with pedicle flap transfer closure was undertaken (oncoplastic closure). By conclusion, good filling of the breast parenchyma defect was noted and redundant skin excised in the T-plasty configuration. DESCRIPTION OF PROCEDURE: The patient was brought to the operating room, given a general LMA type anesthetic. The chest wall was prepared with a chlorhexidine solution and draped sterilely. Localization of the ALAYNA business performance specialist devices had been undertaken in the preoperative area. The area of maximal uptake was noted to be a few centimeters from the areolar margin in the upper outer aspect on the left breast. Both lesions were separately identified based on their signal intensity. An incision was made between the two areas. Dissection was carried through the skin with a 15 blade and ultimately electrocautery. A lateral flap was elevated incorporating the most lateral lesion in question. Dissection was carried deeply to the pectoralis fascia. Upon providing for transection between the two lesion signals, the tissue itself appeared highly suspicious for malignant or premalignant process as well and further efforts to provide two separate excisions was abandoned. Instead, the more medial lesion was identified with the ALAYNA business performance specialist probe and wide resection undertaken medially to that. Dissection was carried down to the pectoralis fascia and wide resection of the tissue effectively performing a full quadrantectomy Excision was taken down to the pectoralis fascia. The specimen was oriented before explantation with a short stitch superior and a long stitch lateral. It was passed for radiographic study, which confirmed both ALAYNA business performance specialist reflectors to have been excised fully. Irrigation was undertaken in the depths of the wound with sterile water. Hemostasis was considered good. The resultant defect was considerable as might be imagined, particularly in this patient, she has relatively small breasts. A flap of parenchyma was elevated from the superior pectoral area and similarly inferiorly, and to a lesser extent, laterally. The parenchymal islands were reapproximated with interrupted 2-0 Vicryl suture. Through a separate stab incision in the inframammary crease, a 7 mm Aniket drain was placed into the lateral aspect of the defect. Distortion of the skin, as would be expected, was managed by a triangular excision at the base medial and the tip laterally to the axilla. Electronically Signed By: JANA VICTORIA MD 03/21/25 0939 PATIENT NAME: REID WATERS OPERATIVE REPORT DATE OF : 70 REPORT #: [id number] PHYSICIAN: JANA VICTORIA MD PCP: HIEU BALBUENA PAC REPORT IS CONFIDENTIAL AND NOT TO BE RELEASED WITHOUT AUTHORIZATION [address] [address] Signed This allowed for a T-plasty type skin closure. This was accomplished with running 3-0 Vicryl in a subcuticular fashion. The resultant incision had a T plasty type look and the edges were secured with Steri-Strips. The drain was attached to bulb suction and Acticoat dressings were applied. The patient was ultimately extubated and transferred to the recovery room in good condition having suffered no complication. Sponge, needle, and instrument counts reported as correct x3. MD LEO Kwon/PATELL /[id number] cc: Hieu Balbuena PA-C Copies: ~ Electronically Signed By: JANA VICTORIA MD 03/21/25 0939 PATIENT NAME: REID WATERS OPERATIVE REPORT DATE OF : 70 REPORT #: [id number] PHYSICIAN: JANA VICTORIA MD PCP: HIEU BALBUENA PAC REPORT IS CONFIDENTIAL AND NOT TO BE RELEASED WITHOUT AUTHORIZATION
--- NOTE | 2025-03-24 16:41 | PATH ---
[facility] [address] [facility] [place], [place] [address] Signed SPECIMEN(S): A LEFT BREAST SPECIMEN SOURCE: A. LEFT BREAST CLINICAL HISTORY: Ductal carcinoma in situ, left breast FINAL PATHOLOGIC DIAGNOSIS: Left breast, lumpectomy: - Ductal carcinoma in situ, see synoptic report DCIS OF THE BREAST: Resection Applies To: A SPECIMEN Procedure: Excision (less than total mastectomy) Specimen Laterality: Left TUMOR Histologic Type: Ductal carcinoma in situ Size (Extent) of DCIS: Estimated size (extent) of DCIS is at least (Millimeters) - 10 x 8 x 8 mm Number of Blocks with DCIS: 6 Number of Blocks Examined: 10 Architectural Patterns: Papillary, Solid Nuclear Grade: Grade II (intermediate) Necrosis: Not identified Microcalcifications: Present in nonneoplastic tissue MARGINS Margin Status: All margins negative for DCIS Distance from DCIS to Closest Margin: 5 mm Closest Margin(s) to DCIS: Superior REGIONAL LYMPH NODES Regional Lymph Node Status: Not applicable (no regional lymph nodes submitted or found) PATHOLOGIC STAGE CLASSIFICATION (pTNM, AJCC 8th Edition) pT Category: pTis (DCIS) pN Category: pN not assigned (no nodes submitted or found) Ancillary studies: Performed on previous biopsy ([id number]): Tumor is ER/GA positive. COMMENT: PATIENT NAME: REID WATERS PATHOLOGY DATE OF : 70 REPORT #: [id number] PHYSICIAN: ESTEBAN PATHOLOGY PCP: HIEU BALBUENA PAC REPORT IS CONFIDENTIAL AND NOT TO BE RELEASED WITHOUT AUTHORIZATION [facility] [address] [place], [place] [address] Signed information assurance officer program, this case is reviewed by another staff member. NA MICROSCOPIC EXAMINATION: Histologic sections of all submitted blocks are examined by light microscopy. These findings, together with the gross examination, support the pathologic diagnosis. Immunohistochemical stain for SMMHC is performed on block A7 and it highlights presents of myoepithelial layer surrounding benign ducts and glands and areas of DCIS. Control slides stained appropriately NA GROSS DESCRIPTION: The specimen, labeled and designated "Agustina left breast," is received in formalin and consists of a 100 g, left breast lumpectomy with a short suture superior long suture lateral. It is 8.5 cm superior to inferior, 3.6 cm medial to lateral and 7.2 cm anterior to deep. The specimen is inked as follows: Superior-blue Inferior-green Anterior-yellow Deep-black Medial - red Lateral - orange The specimen is sectioned from anterior to deep to 20 levels to reveal a dense fibrous possible mass within levels 1 through 9. Two Janna jewel stripper are identified one in level five and one and level 12. Distance of mass to surgical margins: Anterior: 0.1 cm Deep: 5.1 cm Superior: 0.8 cm Inferior: 0.9 cm Medial: 0.4 cm Lateral: 0.8 cm No other areas of interest are noted and the remaining parenchyma is yellow lobulated and fatty. Head Of Transport Logistics sections are submitted in A1-A10: Cassette Summary: (A1) level one, most anterior level, serially sectioned (A2) level three, superior (A3) level five, superior PATIENT NAME: REID WATERS PATHOLOGY DATE OF : 70 REPORT #: [id number] PHYSICIAN: ESTEBAN PATHOLOGY PCP: HIEU BALBUENA PAC REPORT IS CONFIDENTIAL AND NOT TO BE RELEASED WITHOUT AUTHORIZATION [facility] [address] [place], [place] [address] Signed (A4) level five, medial and lateral (A5) level seven, lateral (A6) level seven, medial (A7) level nine, superior (A8) level 11, superior (A9) level 12, superior (A10) level 20, deepest level, serially sectioned Time of collection: 03/20/2025, 9:36 AM. Time into formalin: 03/20/2025, 9:45 AM. Processor load time: 03/22/2025, 1 AM. Ischemic time: 9 minutes Total fixation time in formalin: 39 hours 15 minutes The ASCO/CAP guidelines related to HER2 and hormone receptor testing in breast specimens have been met and the specimen has been placed in formalin within one hour and fixed in 10% neutral buffered formalin for 6 to 72 hours. TN (under the direct supervision of a pathologist) The Gross Description was prepared using a voice recognition system. The report was reviewed for accuracy; however, sound-alike word errors, addition and/or deletions may occur. If there is any question about this report, please contact Client Services. ADDITIONAL NOTES: Immunohistochemical and/or in situ hybridization studies if performed in this case included appropriate positive controls that reacted as expected. This test was developed and its performance characteristics determined by [facility]. It has not been cleared or approved by the U.S. Food and Drug Administration. The FDA has determined that such clearance or approval is not necessary. This test is used for clinical purposes. It should not be regarded as investigational or for research. [facility] is certified under the Clinical Laboratory Improvement Amendments of 1988 (CLIA) as qualified to perform high complexity clinical laboratory testing. PERFORMING LABORATORY: Technical preparation was performed by [facility], [facility] [place] [address] (CLIA#: [id number]). Professional interpretation was performed by [facility] - [facility] [address] [place] [id number] [id number] PATIENT NAME: REID WATERS PATHOLOGY DATE OF : 70 REPORT #: [id number] PHYSICIAN: ESTEBAN ANGULO PCP: HIEU BALBUENA PAC REPORT IS CONFIDENTIAL AND NOT TO BE RELEASED WITHOUT AUTHORIZATION [address] [place], [place] [address] Signed Diagnostician: Christine Yoo MD Pathologist Electronically Signed 03/24/2025 Copies: ~ PATIENT NAME: REID WATERS PATHOLOGY DATE OF : 70 REPORT #: [id number] PHYSICIAN: ESTEBAN PATHOLOGY PCP: HIEU BALBUENA PAC REPORT IS CONFIDENTIAL AND NOT TO BE RELEASED WITHOUT AUTHORIZATION
== END 2025-03-20 13:31 | disposition home or self-care (01) ==
LOC: DS 07:03
PROVIDERS: ATTEND Surgery
PROC: 0JX60ZB Transfer Chest Subcutaneous Tissue and Fascia with Skin and Subcutaneous Tissue, Open Approach (ICD-10-PCS; 2025-03-20)
PROC: 0HBU0ZZ Excision of Left Breast, Open Approach (ICD-10-PCS; principal; 2025-03-20 08:20)
DX: D05.12 Intraductal carcinoma in situ of left breast (principal); R62.50 Unspecified lack of expected normal physiological development in childhood; I10 Essential (primary) hypertension; Z90.711 Acquired absence of uterus with remaining cervical stump; Z90.49 Acquired absence of other specified parts of digestive tract; Z79.890 Hormone replacement therapy; Z79.899 Other long term (current) drug therapy
CPT/HCPCS: 00400; 76098; 77065; J0690; J1100; J1644; J2003; J2250; J2405; J2704; J3010; J7121

== ENCOUNTER 2025-03-22 21:27 | Emergency (ER) | payer OTHER ==
[~2025-03-22] VITALS: Ht 152.4 cm; Wt 67.2 kg
[~2025-03-22 21:27] MED LIST changes: +ACETAMINOPHEN500 MG PO; -CEFAZOLIN SODIUM 2 GM/20 ML SYR IV SCH; -HEParin SOD (PORCINE) 5,000 UNIT/ML SDV SUB-Q SCH; -IBLOOD GLUCOSE TEST STRIP 1 EA TEST VI PRN; -LACTATED RINGER'S 1,000 ML IV SCH; -LIDOCAINE HCL 1% 5 ML SDV INJ ONE; +OXYCODONE HCL5 MG PO; +TYLENOL EXTRA500 MG PO
[2025-03-22 22:56] VITALS: BP 102/67
== END 2025-03-22 22:58 | disposition home or self-care (01) ==
LOC: ED 21:27
DX: Z48.89 Encounter for other specified surgical aftercare (principal); I10 Essential (primary) hypertension; Z79.899 Other long term (current) drug therapy
CPT/HCPCS: 99283